=== PATIENT | male | born 1985 | race Caucasian/White ===

== ENCOUNTER 2020-02-21 23:02 | Emergency (ER) | payer BC ==
[~2020-02-21] VITALS: Ht 177.8 cm; Wt 77.1 kg
--- NOTE | 2020-02-21 23:09 | NUR ---
MOTHER - CHRISTAL BURRELL #[phone]
--- NOTE | 2020-02-21 23:20 | NUR ---
KEATON FROM HOME TO ER CHAIR 1. AAOX4, NOT IN RESP DISTRESS. AMBULATORY. BROUGHT IN FOR DANGER TO SELF BY MAKING GESTURES THAT HE IS GOING TO SHOOT HIMSELF WHILE IN AN AA MEETING. PT DENIES SI NOR HI DURING ASSESSMENT. DENIES HALLUCINATIONS, BOTH VISUAL OR AUDITORY. PT IS PLACED ON [address]. 1:1SITTER AT BEDSIDE. WAS AT BEDSIDE FOR EVAL. WILL DELMI TO MONITOR PT
[2020-02-21 23:34] LABS: BASOPHILS # (AUTO) 0.1 /CMM (0.0-0.2); BASOPHILS % (AUTO) 1.2 % (0.0-2.0); HEMATOCRIT 51 % (39-51); HEMOGLOBIN 17.6 g/dL (13.5-17.5); LYMPHOCYTES # (AUTO) 2.1 /CMM (0.8-4.8); LYMPHOCYTES % (AUTO) 42.2 % (20.0-44.0); MEAN CORPUSCULAR HGB CONC 35 g/dl (31.0-36.0); MEAN CORPUSCULAR VOLUME 99 fL (80-96); MONOCYTES # (AUTO) 0.4 /CMM (0.1-1.30); NEUTROPHILS # (AUTO) 2.3 /CMM (1.8-8.9); NEUTROPHILS % (AUTO) 46.6 % (43.0-81.0); PLATELET COUNT (AUTO) 305 /CMM (150-450); RED BLOOD CELL COUNT(AUTO) 5.11 MIL/uL (4.5-6.0)
[2020-02-21 23:36] LABS: APPEARANCE,URINE Clear (CLEAR); BILIRUBIN,URINE Negative (NEGATIVE); BLOOD, URINE Trace-lysed Ery/uL (NEGATIVE); COLOR,URINE Yellow (YELLOW); KETONES,URINE Negative (NEGATIVE); LEUKOCYTE ESTERASE ,URINE Negative (NEGATIVE); NITRITE, URINE Negative (NEGATIVE); PROTEIN,URINE 30 mg/dl (NEGATIVE); UGLUCOSE Negative (NEGATIVE); UROBILINOGEN,URINE 0.2 EU/dL (0.2)
[2020-02-21 23:41] LABS: CALCIUM, SERUM 9.1 mg/dL (8.5-10.1); POTASSIUM 3.7 mmol/L (3.5-5.1)
[2020-02-21 23:47] LABS: ALBUMIN 4.6 g/dL (3.4-5.0); BILIRUBIN,DIRECT 0.1 mg/dL (0.0-0.2); BILIRUBIN,TOTAL 0.3 mg/dL (0.2-1.0); TOTAL PROTEIN, SERUM 8.3 g/dL (6.4-8.2)
[2020-02-21 23:48] LABS: BACTERIA,URINE Rare /HPF (None Seen); RBC,URINE 0-2 /HPF (0-2); SQUAMOUS EPITHELIAL CELL,UR Rare /HPF (None Seen); WBC,URINE 0-2 /HPF (0-3)
[2020-02-21 23:55] LABS: SALICYLATE 2.4 mg/dL (2.8-20.0)
--- NOTE | 2020-02-22 02:43 | NUR ---
PT SLEEPING AND RESTING COMFORTABLY IN BED. VSS. NO ACUTE DISTRESS NOTED. SITTER AT BESIDE FOR SAFETY
--- NOTE | 2020-02-22 04:42 | NUR ---
PT SLEEPING AND RESTING COMFORTABLY IN BED. VSS. NO ACUTE DISTRESS NOTED. SITTER AT BESIDE FOR SAFETY
--- NOTE | 2020-02-22 06:47 | NUR ---
PT AWAKE. VSS. NO ACUTE DISTRESS NOTED. SITTER AT BESIDE FOR SAFETY
--- NOTE | 2020-02-22 08:00 | NUR ---
breakfast tray provided, tolerate PO well
--- NOTE | 2020-02-22 08:20 | NUR ---
SPOKED TO PT'S MOM WILL PICK HIM UP ONCE PT IS GOOD FOR DISCHARGE.
--- NOTE | 2020-02-22 08:25 | NUR ---
ASSESSED PT ON BED AWAKE, AAOX4, NOT IN RESPIRATORY DISTRESS, V/S STABLE, KEPT RESTED AND COMFORTABLE, PER PT HE IS NOT SUICIDAL ANYMORE AND WANTS TO GO HOME.
--- NOTE | 2020-02-22 08:29 | NUR ---
SPOKED TO KHANG RN CRISIS EDITOR NEWSPAPER FOR [facility]ALSHAWN 1HR.
--- NOTE | 2020-02-22 11:08 | NUR ---
home health clinician Ingrid at bedside
--- NOTE | 2020-02-22 11:57 | NUR ---
PT IS MEDICALLY AND PSYCHIATRICALLY CLEARED. PT IS SOBER, ON STEADY GAIT AND STABLE FOR DISCGHARGE. PTS MOTHER PICKED UP THE PT.
[2020-02-22 11:58] VITALS: BP 129/68
--- NOTE | 2020-02-22 11:59 | NUR ---
Patient discharged to home in stable condition. Written and verbal after care instructions given to Patient and Pt's mom verbalizes understanding of instruction.
--- NOTE | 2020-02-22 12:01 | NUR ---
SW consult was requested by ER staff. SW met with the pt at beside in the Emergency Room. Pt was placed on a hold due to having suicidal ideation and the pt was waiting for a crisis evaluation to break the hold. Upon medical social worker assessment, pt appeared to be in a euthymic mood and presented with a calm affect. Pt was alert and oriented x4 (time, place, self and situation). Pt stated that he does have suicidal or homicidal ideation and/or auditory and visual hallucinations. Pt stated that he was feeling depressed, hopeless, and lonely which led him to call a friend and tell them that he was feeling suicidal. Pt also stated that had been drinking when he made the call. SW asked the pt how the situation would be different if he were to be discharged home and he stated that his girlfriend will be around more and his mom who lives nearby will visit. SW asked the pt about his alcohol abuse and inquired about whether or not he needed referrals. Pt stated that he had been involved with a treatment center called [facility] and he did not find it useful. Pt stated that he has a list of numbers for people who are experienced with alcohol abuse and also stated that he has codes for the Zoom Alcoholics Anonymous meetings that are taking place due to these current times. SW deemed that the pts insight and judgment appear to be fair at this time.
== END 2020-02-22 11:59 | disposition home or self-care (01) ==
LOC: ER 23:02
DX: F19.10 Other psychoactive substance abuse, uncomplicated (principal); R45.851 Suicidal ideations; F10.129 Alcohol abuse with intoxication, unspecified; I10 Essential (primary) hypertension; Y90.6 Blood alcohol level of 120-199 mg/100 ml
CPT/HCPCS: 36415 ×2; 80048; 80076; 80305; 80307 ×2; 80329; 81001; 85025; 99285; G0480; 81000-TC